=== PATIENT | male | born 1970 | race Caucasian/White ===

== ENCOUNTER → 2022-03-30 | Outpatient (CLI) | LOC: M SOG 08:16 | PROVIDERS: ATTEND Physician Assistant | DX: M25.521 Pain in right elbow (principal); G56.03 Carpal tunnel syndrome, bilateral upper limbs ==

== ENCOUNTER 2023-12-09 08:26 | Day surgery (SDC) | payer OTHER ==
[~2023-12-09] VITALS: Ht 177.8 cm; Wt 85.4 kg
[~2023-12-09 08:26] MED LIST: ASPI81TA26 PO; SYNT137T7 PO; SYNT150T PO; THERTAB52 PO
[2023-12-09] MEDS ORDERED: propofoL 200 MG/20 ML VIAL As Ordered ONE (09:33)
[2023-12-09] MEDS ORDERED: LIDOCAINE 2% 100MG/5ML SDV (FOR ANES.) As Ordered ONE (09:33)
[2023-12-09] MEDS ORDERED: fentaNYL 100 MCG/2 ML INJECTION As Ordered ONE (09:34)
[2023-12-09] MEDS ORDERED: MIDAZOLAM INJ 2MG/2ML VIAL As Ordered ONE (09:34)
[2023-12-09] MEDS ORDERED: ONDANSETRON 4MG 2ML VIAL As Ordered ONE (09:57)
[2023-12-09] MEDS ORDERED: KETOROLAC 60MG 2ML VIAL As Ordered ONE (09:57)
[2023-12-09 11:17] VITALS: BP 137/87; TEMP 97.2; O2SAT 100
== END 2023-12-09 11:40 | disposition home or self-care (01) ==
LOC: M SDC 08:26
PROVIDERS: ATTEND Orthopaedic Surgery Hand Surgery
DX: G56.02 Carpal tunnel syndrome, left upper limb (principal); J30.2 Other seasonal allergic rhinitis; Z91.018 Allergy to other foods; E03.9 Hypothyroidism, unspecified; Z79.899 Other long term (current) drug therapy
CPT/HCPCS: 29848; J0665; J1100; J1885; J2250; J2405; J3010

== ENCOUNTER 2024-02-24 06:02 | Day surgery (SDC) | payer OTHER ==
[~2024-02-24] VITALS: Ht 177.8 cm; Wt 90.0 kg
[2024-02-24] MEDS: LIDOCAINE W/EPINEPHRINE 1% 20ML VIAL XX ONE (07:33)
[2024-02-24] MEDS: SODIUM BICARBONATE 8.4% INJ 50MEQ 50ML VIAL XX ONE (07:33)
[2024-02-24] MEDS: ceFAZolin 2 GM/D5W 50 ML IV BAG As Ordered ONE (07:43)
[2024-02-24] MEDS: BACITRACIN OINTMENT 30GM TUBE As Ordered ONE (08:13)
[2024-02-24 08:26] VITALS: BP 162/95; TEMP 97.3; O2SAT 98
== END 2024-02-24 08:40 | disposition home or self-care (01) ==
LOC: M SDC 06:02
PROVIDERS: ATTEND Orthopaedic Surgery Hand Surgery
DX: G56.01 Carpal tunnel syndrome, right upper limb (principal); E06.3 Autoimmune thyroiditis; Z79.890 Hormone replacement therapy; Z79.82 Long term (current) use of aspirin; Z91.018 Allergy to other foods